=== PATIENT | female | born 2000 | race African-American/Black ===

== ENCOUNTER 2021-05-16 09:55 | Inpatient (IN) ==
[2021-05-16] MEDS ORDERED: ceFAZolin 2,000 MG/50 ML DUPLEX IV ONE (10:08)
[2021-05-16] MEDS ORDERED: FAMOTIDINE 20 MG/2 ML VIAL IV ONE ×2 (10:08→16:30)
[2021-05-16] MEDS ORDERED: CITRIC ACID/SODIUM CITRATE 30 ML UDCUP PO ONE ×2 (10:08→16:30)
[2021-05-16] MEDS ORDERED: OXYTOCIN/LR 30 UNIT/1,000 ML BAG IV ONE (10:11)
[2021-05-16] MEDS ORDERED: OXYTOCIN 10 UNIT/ML VIAL IM ONE (10:11)
[2021-05-16] MEDS ORDERED: LACTATED RINGERS 1,000 ML IV SCH ×2 (10:30→18:00)
[2021-05-16 10:40] LABS: Basophils % 0.1 % (0.0-0.8); Eosinophils # 0.1 10*3/uL (0.0-0.87); Eosinophils % 0.9 % (0.00-10.9); Hematocrit 28.6 VOL% (35.7-47.0); Hemoglobin 8.9 GM/DL (12.0-16.0); Immature Granulocytes % 0.8 %; Immature Granulocytes Absolute 0.08 #; Lymphocytes % 18.4 % (21.3-54.2); Mean Corpuscular HGB Conc 31.1 GM/DL (32-36); Mean Corpuscular Volume 69.6 FL (87-102); Mean Platelet Volume 9.8 FL (9.6-12.0); Monocytes % 7.9 % (1.7-12.7); Neutrophils % 71.9 % (38.7-73.9); Platelet Count 331 T/CUMM (130-400); Red Blood Count 4.11 MC/CUMM (3.8-5.5); Red Cell Distribution Width 16.5 % (9.3-17.3); White Blood Count 10.6 T/CUMM (4-12)
[2021-05-16 10:56] LABS: Alanine Aminotransferase 11 U/L (13-56); Albumin 2.3 G/DL (3.4-5.0); Alkaline Phosphatase 163 U/L (45-117); Aspartate Amino Transferase 14 U/L (0-37); Bilirubin,Total < 0.39 MG/DL (0.20-1.00); Blood Urea Nitrogen 4 MG/DL (7-18); Calcium 8.2 MG/DL (8.5-10.1); Carbon Dioxide 20 MMOL/L (21-32); Estimated Glom Filtration Rate 163 ML/MIN; Glucose 75 MG/DL (74-106); Osmolality,Calculated 268.8 MOS/KG (273-304); Potassium 3.7 MMOL/L (3.5-5.1); Sodium 137 MMOL/L (136-145); Total Protein 7.5 G/DL (6.4-8.2)
[2021-05-16] MEDS ORDERED: METOCLOPRAMIDE 10 MG/2 ML VIAL ONE (16:11)
[2021-05-16] MEDS ORDERED: ONDANSETRON 4 MG/2 ML VIAL ONE (16:11)
[2021-05-16] MEDS ORDERED: ceFAZolin 1,000 MG VIAL ONE (16:11)
[2021-05-16] MEDS ORDERED: LACTATED RINGERS 0 ML IV ONE (16:16)
[2021-05-16] MEDS ORDERED: BUPIVACAINE SPINAL 0.75% 2 ML AMP SPINAL ONE (16:16)
[2021-05-16] MEDS ORDERED: PHENYLEPHRINE 10 MG/1 ML VIAL IV ONE (17:10)
[2021-05-16] MEDS ORDERED: GLYCOPYRROLATE 0.4 MG/2 ML VIAL ONE (17:10)
[2021-05-16] MEDS ORDERED: LACTATED RINGERS 2,000 ML IV ONE (17:10)
[2021-05-16] MEDS ORDERED: KETOROLAC 30 MG/1 ML VIAL ONE (17:17)
[2021-05-16 17:30] LABS: Cord Arterial Blood HCO3 19.1 MMOL/L
[2021-05-16 17:31] LABS: Cord Venous Blood HCO3 21.4 MMOL/L; Cord Venous Blood PCO2 47.8 MMHG; Cord Venous Blood PO2 < 19.0 MMHG
[2021-05-16 17:37] LABS: Bilirubin,Urine Negative (Negative); Blood, Urine Negative (Negative); Glucose,Urine (UA) Negative (Negative); Ketones,Urine 80 mg/dL (Negative); Mucus,Urine Occasional /LPF (Occasional); Nitrite,Urine Negative (Negative); Protein,Urine Negative; RBC,Urine <1 /HPF (0-4); Squamous Epithelial Cell,Urine Occasional /HPF (0-10); Urine Appearance CLEAR (Clear); Urine Color Yellow (Yellow); Urine Specific Gravity 1.013 (1.001-1.035); Urine Urobilinogen < 2.0 EU/DL (0.2-1.0)
[2021-05-16] MEDS ORDERED: OXYTOCIN/LR 20 UNIT/1,000 ML BAG IV ONE (17:43)
[2021-05-16] MEDS ORDERED: ONDANSETRON 4 MG/2 ML VIAL IV PRN (17:43)
[2021-05-16] MEDS ORDERED: ACETAMINOPHEN 325 MG TABLET PO PRN (17:43)
[2021-05-16] MEDS ORDERED: RHO(D) IMMUNE GLOBULIN 300 MCG SYRINGE IM ONE (17:43)
[2021-05-16] MEDS ORDERED: SIMETHICONE CHEW 80 MG TABLET PO PRN (17:43)
[2021-05-16] MEDS: ACETAMINOPHEN 500 MG TABLET PO SCH (20:30)
[2021-05-16] MEDS: DOCUSATE SODIUM 100 MG CAPSULE PO SCH (21:00)
[2021-05-16 22:50] LABS: Hematocrit 27.3 VOL% (35.7-47.0); Hemoglobin 8.3 GM/DL (12.0-16.0)
[2021-05-16] MEDS: KETOROLAC 30 MG/1 ML VIAL IV SCH (23:23)
[2021-05-17] MEDS: ACETAMINOPHEN 500 MG TABLET PO SCH ×4 (03:35→22:00)
[2021-05-17 05:43] LABS: Basophils % 0.1 % (0.0-0.8); Hematocrit 26.3 VOL% (35.7-47.0); Immature Granulocytes % 0.6 %; Immature Granulocytes Absolute 0.08 #; Lymphocytes # 1.1 10*3/uL (1.4-4.0); Lymphocytes % 8.3 % (21.3-54.2); Mean Corpuscular HGB Conc 30.4 GM/DL (32-36); Mean Corpuscular Volume 70.7 FL (87-102); Mean Platelet Volume 10.4 FL (9.6-12.0); Monocytes % 6.3 % (1.7-12.7); Neutrophils % 84.7 % (38.7-73.9); Platelet Count 269 T/CUMM (130-400); Red Blood Count 3.72 MC/CUMM (3.8-5.5); Red Cell Distribution Width 16.4 % (9.3-17.3); White Blood Count 12.9 T/CUMM (4-12)
[2021-05-17] MEDS: KETOROLAC 30 MG/1 ML VIAL IV SCH ×3 (05:43→19:05)
[2021-05-17] MEDS: MULTIVITAMIN (PRENATAL) TABLET PO SCH (08:28)
[2021-05-17] MEDS: DOCUSATE SODIUM 100 MG CAPSULE PO SCH ×2 (08:29→09:23)
[2021-05-17] MEDS: MAGNESIUM HYDROXIDE SUSP 30 ML UDCUP PO PRN (08:29)
[2021-05-17] MEDS ORDERED: FERROUS SULFATE 325 MG TABLET PO SCH (17:00)
[2021-05-17] MEDS ORDERED: SIMETHICONE CHEW 125 MG TABLET PO PRN (20:24)
[2021-05-17] MEDS ORDERED: BISACODYL 10 MG SUPP RECTAL PRN (20:24)
[2021-05-17] MEDS ORDERED: METOCLOPRAMIDE 10 MG TABLET PO SCH (20:30)
[2021-05-17] MEDS: DOCUSATE SODIUM 100 MG/10 ML UDCUP PO SCH (20:46)
[2021-05-17] MEDS: SIMETHICONE CHEW 125 MG TABLET PO PRN ×2 (20:48→22:05)
[2021-05-17] MEDS ORDERED: FERROUS SULFATE 300 MG/5 ML UDCUP PO SCH (21:00)
[2021-05-17] MEDS: IBUPROFEN 800 MG TABLET PO PRN (22:05)
[2021-05-18] MEDS: IBUPROFEN 800 MG TABLET PO PRN (07:40)
[2021-05-18] MEDS ORDERED: FERROUS SULFATE 300 MG/5 ML UDCUP PO SCH (08:00)
[2021-05-18 08:38] VITALS: BP 111/64
[2021-05-18] MEDS: DOCUSATE SODIUM 100 MG/10 ML UDCUP PO SCH (08:48)
[2021-05-18] MEDS: MAGNESIUM HYDROXIDE SUSP 30 ML UDCUP PO PRN (08:48)
[2021-05-18] MEDS: SIMETHICONE CHEW 125 MG TABLET PO PRN (08:48)
[2021-05-18] MEDS: MULTIVITAMIN (PRENATAL) TABLET PO SCH (08:49)
== END 2021-05-18 14:06 | disposition home or self-care (01) | DRG 540 ==
LOC: N.LD 09:55 → N.OB 20:04
PROVIDERS: ADMIT Obstetrics & Gynecology; ATTEND Obstetrics & Gynecology
PROC: LDCSECT (ICD-10-PCS; 2021-05-16 17:00)